=== PATIENT | male | born 1965 | race Caucasian/White ===

== ENCOUNTER 2021-11-21 11:43 | Emergency (ER) | payer OTHER ==
[~2021-11-21] VITALS: Ht 180.3 cm; Wt 81.6 kg
[~2021-11-21 11:43] MED LIST: QUET100T PO; TRAZ-182 PO
--- NOTE | 2021-11-21 11:55 | NUR ---
URINE COLLECTED AND SENT TO LAB
--- NOTE | 2021-11-21 11:56 | NUR ---
TO ER BED 18, BIBS VOLUNTARY TO SOCAL WITH PLAN TO RUN INTO TRAFFIC "I HAVE ANXIETY", AAOX3, BREATHING EVEN AND NON LABORED, AWAITING MD AVILA
--- NOTE | 2021-11-21 11:57 | NUR ---
PT BELONGINGS COLLECTED AND PLACED IN LOCKER ROOM
--- NOTE | 2021-11-21 12:00 | NUR ---
COVID SWAB DONE AND SENT TO LAB
[2021-11-21 12:08] LABS: BASOPHILS % (AUTO) 0.7 % (0.0-2.0); EOSINOPHILS % (AUTO) 1.1 % (0.0-6.0); HEMATOCRIT 42 % (39-51); HEMOGLOBIN 14.3 g/dL (13.5-17.5); LYMPHOCYTES # (AUTO) 1.3 K/uL (0.8-4.8); LYMPHOCYTES % (AUTO) 20.2 % (20.0-44.0); MEAN CORPUSCULAR HGB CONC 34 g/dl (31.0-36.0); MEAN CORPUSCULAR VOLUME 90 fL (80-96); MONOCYTES # (AUTO) 0.4 K/uL (0.1-1.30); MONOCYTES % (AUTO) 5.5 % (2.0-12.0); NEUTROPHILS # (AUTO) 4.7 K/uL (1.8-8.9); NEUTROPHILS % (AUTO) 72.5 % (43.0-81.0); PLATELET COUNT (AUTO) 299 K/uL (150-450); RED BLOOD CELL COUNT(AUTO) 4.67 MIL/uL (4.5-6.0); WHITE BLOOD COUNT (AUTO) 6.4 K/uL (4.3-11.0)
[2021-11-21 12:16] LABS: CALCIUM, SERUM 8.7 mg/dL (8.5-10.1); CARBON DIOXIDE 28 mmol/L (21-32); CHLORIDE 105 mmol/L (98-107); CREATININE 0.9 mg/dL (0.6-1.3); GLUCOSE 96 mg/dL (74-106); SODIUM SERUM 137 mmol/L (136-145); UREA NITROGEN, BLOOD 13 mg/dL (7-18)
[2021-11-21 12:19] LABS: BILIRUBIN,URINE NEGATIVE (NEGATIVE); COLOR,URINE YELLOW (YELLOW); LEUKOCYTE ESTERASE ,URINE NEGATIVE (NEGATIVE); NITRITE, URINE NEGATIVE (NEGATIVE); PH,URINE 7.5 (5.0-8.0); PROTEIN,URINE NEGATIVE (NEGATIVE); UGLUCOSE NEGATIVE (NEGATIVE)
[2021-11-21 12:22] LABS: ALANINE AMINOTRANSFERASE 17 U/L (12-78); ALBUMIN 3.7 g/dL (3.4-5.0); ALKALINE PHOSPHATASE 106 U/L (46-116); ASPARTATE AMINOTRANSFERASE 20 U/L (15-37); BILIRUBIN,DIRECT 0.1 mg/dL (0.0-0.2); BILIRUBIN,TOTAL 0.2 mg/dL (0.2-1.0); TOTAL PROTEIN, SERUM 7.6 g/dL (6.4-8.2)
[2021-11-21 12:23] LABS: ACETAMINOPHEN 0 ug/ml (10-30); ALCOHOL, BLOOD < 3 mg/dL (0-0)
[2021-11-21 12:56] LABS: BACTERIA,URINE None seen /HPF (None Seen); RBC,URINE 0-2 /HPF (0-2); SQUAMOUS EPITHELIAL CELL,UR Rare /HPF (None Seen); WBC,URINE 0-2 /HPF (0-3)
--- NOTE | 2021-11-21 14:34 | NUR ---
FAXED CLINCIALS TO [facility]
--- NOTE | 2021-11-21 15:33 | NUR ---
FOLLOWED-UP WITH [facility]. PER ALLAN LLANOS PT.'S CLINICALS IS BEING REVIEWED.
--- NOTE | 2021-11-21 16:24 | NUR ---
Patient Tranfers to outside Facility Physician:Dr. Aguilera Location:[facility] number for report [phone], eta [phone]
--- NOTE | 2021-11-21 16:26 | NUR ---
report health and wellness director to [facility]
[2021-11-21] MEDS ORDERED: LORAZEPAM 1 MG TABLET ONE (16:54)
[2021-11-21] MEDS ORDERED: LORAZEPAM 1 MG TABLET PO ONE (17:00)
--- NOTE | 2021-11-21 18:22 | NUR ---
picked up by shaista aldrich in stable condition
[2021-11-21 18:51] VITALS: BP 120/86
== END 2021-11-21 18:52 ==
LOC: ER 11:45
DX: R45.851 Suicidal ideations (principal); Z20.822 Contact with and (suspected) exposure to COVID-19; F14.10 Cocaine abuse, uncomplicated; Z79.899 Other long term (current) drug therapy; F20.9 Schizophrenia, unspecified; F41.9 Anxiety disorder, unspecified
CPT/HCPCS: 36415; 80048; 80076; 80143; 80307; 80320; 81001; 85025; 87426; 99285; C9803; G0480

== ENCOUNTER 2025-04-06 00:46 | Emergency (ER) | payer OTHER ==
[~2025-04-06] VITALS: Ht 182.9 cm; Wt 59.0 kg
[2025-04-06] MEDS ORDERED: ONDANSETRON HCL/PF 4 MG/2 ML VIAL ONE (01:01)
[2025-04-06] MEDS: IV NS 0.9% 1,000 ML BAG IV ONE (01:18)
[2025-04-06] MEDS: ONDANSETRON HCL/PF 4 MG/2 ML VIAL IVP ONE (01:18)
[2025-04-06] MEDS ORDERED: KETOROLAC TROMETHAMINE 15 MG/ML VIAL ONE (01:28)
[2025-04-06 01:37] LABS: PLATELET COUNT (AUTO) 322 K/uL (150-450); RED BLOOD CELL COUNT(AUTO) 4.70 MIL/uL (4.5-6.0); RED CELL DISTRIBUTION WIDTH 14.2 % (11.5-15.0); WHITE BLOOD COUNT (AUTO) 8.8 K/uL (4.3-11.0)
[2025-04-06 01:44] LABS: CALCIUM, SERUM 9.4 mg/dL (8.5-10.1); CREATININE 1.6 mg/dL (0.6-1.3); SODIUM SERUM 140 mmol/L (136-145); UREA NITROGEN, BLOOD 25 mg/dL (7-18)
[2025-04-06 01:48] LABS: INR 1.0 (0.91-1.10)
[2025-04-06] MEDS: KETOROLAC TROMETHAMINE 15 MG/ML VIAL IV ONE (01:48)
[2025-04-06 01:49] LABS: ASPARTATE AMINOTRANSFERASE 22 U/L (15-37); TOTAL PROTEIN, SERUM 7.7 g/dL (6.4-8.2)
[2025-04-06 03:54] LABS: AMPHETAMINE, URINE NEGATIVE (NEGATIVE); BARBITURATE, URINE NEGATIVE (NEGATIVE); BENZODIAZEPINE, URINE NEGATIVE (NEGATIVE); CANNABINOID, URINE NEGATIVE (NEGATIVE); OPIATE, URINE NEGATIVE (NEGATIVE)
[2025-04-06 03:55] LABS: COCCAINE, URINE POSITIVE (NEGATIVE)
[2025-04-06 05:36] VITALS: BP 115/64; TEMP 98.2; O2SAT 96
== END 2025-04-06 05:36 ==
LOC: ER 00:49
DX: S70.02XA Contusion of left hip, initial encounter (principal); R55 Syncope and collapse; E86.0 Dehydration; F19.10 Other psychoactive substance abuse, uncomplicated; F32.A Depression, unspecified; Z79.899 Other long term (current) drug therapy; Z60.2 Problems related to living alone; W18.39XA Other fall on same level, initial encounter; Y93.89 Activity, other specified; Y92.89 Other specified places as the place of occurrence of the external cause; Y99.8 Other external cause status
CPT/HCPCS: 73501; 99285; 96374; 96375; 93005; 71045; 70450; 85025; 80048; 80076; 36415; 84484; 85730; 82962; 80320; 80307; J2405; J1885; 73020; G0480

== ENCOUNTER 2025-05-23 15:27 | Emergency (ER) | payer OTHER ==
[~2025-05-23] VITALS: Ht 180.3 cm; Wt 68.9 kg
[2025-05-23 16:39] LABS: PLATELET COUNT (AUTO) 323 K/uL (150-450); RED BLOOD CELL COUNT(AUTO) 4.48 MIL/uL (4.5-6.0); RED CELL DISTRIBUTION WIDTH 13.5 % (11.5-15.0); WHITE BLOOD COUNT (AUTO) 7.3 K/uL (4.3-11.0)
[2025-05-23 16:40] LABS: APPEARANCE,URINE CLEAR (CLEAR); BLOOD, URINE NEGATIVE Ery/uL (NEGATIVE); LEUKOCYTE ESTERASE ,URINE NEGATIVE (NEGATIVE); NITRITE, URINE NEGATIVE (NEGATIVE); UGLUCOSE NEGATIVE (NEGATIVE)
[2025-05-23 16:59] LABS: AMPHETAMINE, URINE NEGATIVE (NEGATIVE); BARBITURATE, URINE NEGATIVE (NEGATIVE); BENZODIAZEPINE, URINE NEGATIVE (NEGATIVE); CANNABINOID, URINE NEGATIVE (NEGATIVE); OPIATE, URINE NEGATIVE (NEGATIVE)
[2025-05-23 17:02] LABS: CALCIUM, SERUM 8.6 mg/dL (8.5-10.1); CREATININE 0.7 mg/dL (0.6-1.3); SODIUM SERUM 140 mmol/L (136-145); UREA NITROGEN, BLOOD 14 mg/dL (7-18)
[2025-05-23 17:05] LABS: COCCAINE, URINE POSITIVE (NEGATIVE)
[2025-05-23 17:10] LABS: ASPARTATE AMINOTRANSFERASE 18 U/L (15-37); TOTAL PROTEIN, SERUM 7.8 g/dL (6.4-8.2)
[2025-05-23 17:50] VITALS: BP 129/72; TEMP 98; O2SAT 99
== END 2025-05-23 18:57 ==
LOC: ER 15:38
DX: F41.9 Anxiety disorder, unspecified (principal); F32.A Depression, unspecified; F20.9 Schizophrenia, unspecified; I10 Essential (primary) hypertension; Z02.89 Encounter for other administrative examinations; Z79.899 Other long term (current) drug therapy
CPT/HCPCS: 36415; 80048-TC; 80076-TC; 85025-TC